=== PATIENT | female | born 1995 | race Caucasian/White ===

== ENCOUNTER 2023-08-24 03:24 | Inpatient (IN) | payer BC ==
[2023-08-24] VITALS (67 sets, daily range): BP systolic 98–168; BP diastolic 52–92; PULSE 83–160; TEMP 9
[~2023-08-24] VITALS: Ht 165.1 cm; Wt 88.5 kg
--- NOTE | 2023-08-24 04:00 | NUR ---
0325: Pt arrives ambulatory to unit accompanied by spouse and staff. Shown to room and instructed to change into gown. 0335: RN enters room and begins discussing plan of care with pt and spouse. EFM monitors placed on pt and and health hx discussed with pt. Pt reports waking up around 0230 today feeling a pop in her groin and when she went to get out of bed, a gush of clear fluid leaked out. Pt reports ctx becoming stronger as time progresses, but is coping well at this time. I discuss with pt that if she consents, I would like to obtain a swab to test and see if she is ruptured, then obtain a cervical exam. Pt consents and agreeable to this plan. 0344: AmnioTrace positive at this time and SVE 2-3/80/-2. Ctx every 1-2 minutes, moderate by palpation, pt breathing through the ctx well. arrhythmia audibly heard and picked up on tracing as well. Pt and spouse inform me that the arrhythmia was found during her visits and has been monitored by MFM. Accels noted and good variability, no decels noted.
--- NOTE | 2023-08-24 04:30 | NUR ---
arrhythmia continues to be noted on monitor and audibly hear by this RN. Pt reporting an increase in pain with her ctx and increasingly more uncomfortable. This RN discusses admission procedure, IV and consents.
[2023-08-24 04:52] LABS: BASO # 0.1 K/mm3 (0.0-0.2); BASO % 0.5 % (0.0-2.0); EOS # 0.2 K/mm3 (0.0-0.7); EOS % 1.3 % (0.0-4.0); GRAN # 8.9 K/mm3 (1.4-6.5); GRAN % 74.7 % (42.2-75.2); HEMOGLOBIN 10.5 g/dl (12.5-16.0); LYMPH # 1.8 K/mm3 (1.2-3.4); LYMPH % 14.8 % (20.0-51.0); MEAN CELL VOLUME 74 fl (80.0-100.0); MEAN CORPUSCULAR HEMOGLOBIN 23 pg (27-31); MEAN CORPUSCULAR HGB CONC 31 g/dl (33.0-37.0); MEAN PLATELET VOLUME 11.9 fl (7.4-10.4); PLATELET COUNT 210 K/mm3 (130-400); RED BLOOD COUNT 4.51 M/mm3 (4.10-5.30)
[2023-08-24 05:00] LABS: HEMATOCRIT 33.5 % (37.0-47.0)
--- NOTE | 2023-08-24 05:00 | NUR ---
0440: IV started and labs obtained, LR bolus started at this time. Pt ctx every 1-2 minutes and pt reporting becoming increasingly uncomfortable. Pt reminded she is able to get her epidural when she desires. I continue to monitor strip due to arrhythmia, continue to have accels, no decels and good variability.
--- NOTE | 2023-08-24 05:30 | NUR ---
0520: Anesthesia at bedside for epidural placement. Pt sitting on the side of the bed, RN in front of pt for support. I manually hold the US in place to obtain heart tones.
--- NOTE | 2023-08-24 05:45 | NUR ---
0533: Epidural in place and test dose administered at this time. Pt tolerates well. 0540: Pt assisted back to bed, head of bed slightly elevated and tilted to the left some. Pt reports being comfortable in this position at this time.
--- NOTE | 2023-08-24 06:00 | NUR ---
0550: Pt comfortable in her current position, reports the ctx are getting less painful at this time. I inform pt that I would like to let her epidural set up more and then would like to place her leonard and obtain a cervical exam if she consents. Pt verbalizes understanding.
--- NOTE | 2023-08-24 06:15 | NUR ---
0605: Pt repositioned slightly for catheter placement and cervical exam. 0609: Catheter placed at this time, clear, yellow urine returned. Pt tolerated placement well. 0610: SVE 4/80/-1 and pt tolerated exam well also. Pt repostioned to a right tilt and pillow supporting her back. Pt comfortable at this time.
--- NOTE | 2023-08-24 09:58 | NUR ---
LATE DECELERATION NOTED. PT REPOSITIONED BY THIS RN FROM SEMI FOWLERS TO RIGHT LATERAL.
--- NOTE | 2023-08-24 11:40 | NUR ---
[id number] DIFFICULTY TRACING FHR 1138 PT REPOSITIONED INTO [facility] [place]
--- NOTE | 2023-08-24 17:45 | NUR ---
1355 SVE BY THIS RN . 1358 NOTIFIES TRE PT IS COMPLETE AND THAT WE ARE GOING TO BEGIN PUSHING. 1400 A REAGAN RN SVE TO CONFIRM. 1405 FRANKS DISCONTINUED 1410 THIS RN BEGINS COACHING PT THROUGH PUSHING WITH CONTRACTIONS. THIS RN REMAINS AT BEDSIDE. 1522 DR TOLEDO NOTIFIES THIS RN THAT SHE IS ON HER WAY OVER TO THE HOSPITAL. 1540 DR TOLEDO AT PT'S BEDSIDE ALSO COACHING PT THROUGH PUSHING WITH CONTRACTIONS. 1705 DR TOLEDO ASKS PT IF SHE CAN CUT AN EPISIOTOMY. PT GIVES PERMISSION. DR TOLEDO CUTS EPISIOTOMY. 1709 SPONTANEOUS DELIVERY OF HEAD. 1 MINUTE AND 7 SECOND SHOULDER DYSTOCIA. MCCROBERTS AND SUPRAPUBIC PRESSURE PERFORMED. DR TOLEDO DOES OTHER MANEUVERS THAT ARE DICTATED IN HER NOTES. 1710 DELIVERY OF MALE INFANT. INFANT'S CORD CLAMPED AND CUT BY DR TOLEDO. Stephen ANTHONY RN TAKES OVER CARE OF . TO WARMER. 1714 SPONTANEOUS DELIVERY OF PLACENTA. PITOCIN BOLUS STARTED PER PROTOCOL. DR TOLEDO REPAIRS 3RD DEGREE LACERATION AND EPISIOTOMY. FUNDAL MASSAGE DONE. FIRM/MIDLINE. SMALL AMT OF BLEEDING NOTED. PERICARE DONE. PT REPOSITIONED. CLEAN ICE PACK PAD PLACED. SAFETY PRECAUTIONS AND POC DISCUSSED. PT VERBALIZES UNDERSTANDING.
--- NOTE | 2023-08-24 19:45 | NUR ---
PT FELT NAUSEATED, AT THIS TIME, THIS RN PERFORMED FUNDAL MASSAGE. MEDIUM SIZED CLOTS CAME OUT, AT THIS TIME, PAD CHANGED AND WEIGHED. QBL: 238
--- NOTE | 2023-08-24 20:05 | NUR ---
THE PATIENT HAS HAD SIGNIFICANT BLEEDING/CLOTS. PT IS SYMPTOMATIC, NAUSEA/VOMITTING AND RINGING IN THE EARS. BLOOD PRESSURES HAVE DROPPED SIGNIFICANTLY FROM NORMAL TO PATIENT. PADS AND CHUCKS WEIGHED, FIRST LARGE CLOT WEIGHED 524, SECOND CLOT WEIGHED 206. PT CONTINUES TO TRICKLE. FUNDAL MASSAGE PERFORMED, UTERUS FIRMS UP. PHYSICIAN NOTIFIED; SEE PHYSICIAN NOTIFICATION.
--- NOTE | 2023-08-24 20:26 | NUR ---
PT BEGAN TO FEEL NAUSEATED. PT VOMITTING, MORE BLEEDING AND CLOTS AT THIS TIME. CLOT WEIGHED 320. NOTIFIED PHYSICIAN. SEE PHYSICIAN NOTIFICATION.
[2023-08-24 20:42] LABS: HEMATOCRIT 23.3 % (37.0-47.0); HEMOGLOBIN 7.4 g/dl (12.5-16.0)
--- NOTE | 2023-08-24 20:50 | NUR ---
PT BEGAN TO FEEL NAUSEATED. PT VOMITTING, MORE BLEEDING AND CLOTS AT THIS TIME. CLOT WEIGHED 320. NOTIFIED PHYSICIAN. SEE PHYSICIAN NOTIFICATION.
[2023-08-24] MEDS ORDERED: TRANDATE 100MG100 MG PO (22:40)
[2023-08-24] MEDS ORDERED: SYNTHROID0.088 MG/T PO (22:41)
[2023-08-24] MEDS ORDERED: PEPCID AC20 MG PO (22:42)
[2023-08-24] MEDS ORDERED: ZOFRAN 4MG T4 MG/TAB PO (22:43)
[2023-08-24] MEDS ORDERED: PRILOSEC 20MG20 MG PO (22:44)
[2023-08-24] MEDS ORDERED: MELATONIN5 M1 PO (22:45)
[2023-08-24] MEDS ORDERED: PNV-SELECT1 TAB PO (22:45)
[2023-08-24] MEDS ORDERED: GOOD SENSE SLEE25 M1 PO (22:46)
[2023-08-25] VITALS (9 sets, daily range): BP systolic 125–135; BP diastolic 65–81; PULSE 84–108; TEMP 97.7–98.4
[2023-08-25 07:48] LABS: HEMATOCRIT 28.1 % (37.0-47.0); HEMOGLOBIN 9.2 g/dl (12.5-16.0)
--- NOTE | 2023-08-25 09:23 | NUR ---
Initial visit attempt; Patient out of her room. [employer] Department Supervisor left card offering congratulations and God's blessings for the of her son. Card included information regarding the availability of Spiritual Care at [facility].
--- NOTE | 2023-08-25 10:45 | NUR ---
WITH THIS RN AND WIL KIRK ASSIST,PT WHEELED(WHEELCHAIR) INTO ROOM 216.PT DENIES REPORT OF DIZZINESS OR LIGHTHEADEDNESS.PT CHANGED INTO NEW GOWN AND SOCKS APPLIED.PT ACCLIMATED TO ROOM.EDUCATION AND POC REVIEWED WITH PT AND SPOUSE.PT VERBALIZES UNDERSTANDING.
[2023-08-26 07:58] LABS: MEAN CORPUSCULAR HGB CONC 33 g/dl (33.0-37.0); MEAN PLATELET VOLUME 12.1 fl (7.4-10.4); PLATELET COUNT 193 K/mm3 (130-400); RED BLOOD COUNT 3.24 M/mm3 (4.10-5.30); REDCELL DISTRIBUTION WIDTH-CV 15.6 % (11.5-14.5)
[2023-08-26 07:59] LABS: HEMATOCRIT 25.5 % (37.0-47.0); HEMOGLOBIN 8.3 g/dl (12.5-16.0); MEAN CELL VOLUME 79 fl (80.0-100.0); MEAN CORPUSCULAR HEMOGLOBIN 26 pg (27-31)
[2023-08-26] MEDS ORDERED: IBU800 M1 PO (08:36)
[2023-08-26 09:00] VITALS: BP 134/78; PULSE 82; TEMP 98.4
== END 2023-08-26 15:00 | disposition home or self-care (01) | DRG 768 ==
LOC: LDRO 03:24 → LDR 03:50 → OB 03:50
PROVIDERS: Obstetrics & Gynecology; Student in an Organized Health Care Education/Training Program; ADMIT Obstetrics & Gynecology
PROC: 10E0XZZ Delivery of Products of Conception, External Approach (ICD-10-PCS; principal; 2023-08-24)
PROC: 0DQR0ZZ Repair Anal Sphincter, Open Approach (ICD-10-PCS; 2023-08-24)
PROC: 0W8NXZZ Division of Female Perineum, External Approach (ICD-10-PCS; 2023-08-24)
PROC: 30233N1 Transfusion of Nonautologous Red Blood Cells into Peripheral Vein, Percutaneous Approach (ICD-10-PCS; 2023-08-24)
DX: O10.92 Unspecified pre-existing hypertension complicating childbirth (principal); Z37.0 Single live birth; O70.20 Third degree perineal laceration during delivery, unspecified; O72.1 Other immediate postpartum hemorrhage; O66.0 Obstructed labor due to shoulder dystocia; Z3A.38 38 weeks gestation of pregnancy; O99.284 Endocrine, nutritional and metabolic diseases complicating childbirth; O36.63X0 Maternal care for excessive fetal growth, third trimester, not applicable or unspecified; E03.9 Hypothyroidism, unspecified; K21.9 Gastro-esophageal reflux disease without esophagitis; O99.62 Diseases of the digestive system complicating childbirth; O76 Abnormality in fetal heart rate and rhythm complicating labor and delivery; O99.02 Anemia complicating childbirth; O63.1 Prolonged second stage (of labor); D64.9 Anemia, unspecified; Z86.16 Personal history of COVID-19; Z79.890 Hormone replacement therapy; Z23 Encounter for immunization
CPT/HCPCS: J1940; J2405; J2590; J2795; J7120; P9016

== ENCOUNTER 2023-08-31 19:02 | Emergency (ER) | payer OTHER ==
[~2023-08-31] VITALS: Ht 165.1 cm; Wt 81.8 kg
[~2023-08-31 19:02] MED LIST: GOOD SENSE SLEE25 M1 PO; IBU800 M1 PO; MELATONIN5 M1 PO; PEPCID AC20 MG PO; PNV-SELECT1 TAB PO; PRILOSEC 20MG20 MG PO; SYNTHROID0.088 MG/T PO; TRANDATE 100MG100 MG PO; ZOFRAN 4MG T4 MG/TAB PO
[2023-08-31] MEDS ORDERED: Labetalol 100 MG TAB PO ONE (19:45)
[2023-08-31 20:10] LABS: BASO # 0.1 K/mm3 (0.0-0.2); BASO % 0.6 % (0.0-2.0); EOS # 0.2 K/mm3 (0.0-0.7); EOS % 1.8 % (0.0-4.0); GRAN # 7.2 K/mm3 (1.4-6.5); GRAN % 69.8 % (42.2-75.2); LYMPH # 1.9 K/mm3 (1.2-3.4); LYMPH % 18.5 % (20.0-51.0); MEAN CELL VOLUME 78 fl (80.0-100.0); MEAN CORPUSCULAR HGB CONC 32 g/dl (33.0-37.0); MEAN PLATELET VOLUME 10.6 fl (7.4-10.4); MONO # 0.9 K/mm3 (0.1-0.6); MONO % 8.3 % (1.7-9.3); PLATELET COUNT 394 K/mm3 (130-400); RED BLOOD COUNT 3.47 M/mm3 (4.10-5.30); REDCELL DISTRIBUTION WIDTH-CV 16.4 % (11.5-14.5)
[2023-08-31 20:11] LABS: HEMATOCRIT 27.1 % (37.0-47.0); HEMOGLOBIN 8.7 g/dl (12.5-16.0); MEAN CORPUSCULAR HEMOGLOBIN 25 pg (27-31)
[2023-08-31 20:25] LABS: ALBUMIN 2.9 gm/dL (3.5-5.0); BILIRUBIN,TOTAL 0.2 mg/dL (0.2-1.2); CALCIUM 8.7 mg/dL (8.4-10.2); CREATININE, serum 0.74 mg/dL (0.57-1.11); POTASSIUM 3.8 mmol/L (3.5-4.5)
[2023-08-31 20:59] LABS: COLLECTION METHOD CLEAN CATCH
[2023-08-31 21:07] VITALS: BP 134/88; PULSE 62
[2023-08-31 21:41] LABS: URINE APPEARANCE Hazy (CLEAR/HAZY); URINE COLOR Yellow (YELLOW)
[2023-08-31 21:42] LABS: PH 6.5 (5.0-8.5); SQUAMOUS EPITHELIAL 0-2 /hpf (0-10); URINE BACTERIA Occasional /hpf (NONE SEEN); URINE BLOOD 2+ (NEGATIVE); URINE GLUCOSE Negative (NEGATIVE); URINE KETONE Negative (NEGATIVE); URINE NITRATE Negative (NEGATIVE); URINE PROTEIN(semi-quant) Negative (NEGATIVE); URINE UROBILINOGEN 0.2 E.U/dL (0.2-1.0)
== END 2023-08-31 21:16 | disposition home or self-care (01) ==
LOC: COL.ER 19:02
PROVIDERS: Family Medicine
DX: O16.5 Unspecified maternal hypertension, complicating the puerperium (principal)